=== PATIENT | female | born 1975 | race Caucasian/White ===

== ENCOUNTER 2017-04-20 09:03 | Day surgery (SDC) | payer BC ==
[~2017-04-20] VITALS: Ht 170.2 cm; Wt 150.0 kg
[~2017-04-20 09:03] MED LIST: ALBUTEROL17 GM IH; ALDOMET250 MG PO; ALIGN4 MG PO; ALLEGRA30 MG PO; ATIVAN1 MG PO; ATROVENT 00.5 MG/2.5 IH; BENTYL20 MG PO; BUSPAR15 MG PO; CLONIDINE HCL0.1 MG PO; COMBIVENT200 INHALA IH; DEPO-PROVER150 MG/ML IM; DILAUDID2 MG PO; EXFORGE 10/11 TABLET PO; EXFORGE 5/321 TABLET PO; FLEXERIL5 MG PO; FLONASE ALLERG9.9 ML BOTH NARES; FLONASE16 G1 BOTH NARES; FLONASE16 G1 NS; FLORANEX CHE1 TABLET PO; Flexeril PO; Flonase BOTH NARES; HUMALOG100 UNIT/2 SC; HYDROCHLOROTHIA50 MG PO; HYDROCODON-ACE1 EACH PO; IMITREX20 MG NS; IMITREX5 MG NS; LANTUS 3 M100 UNITS1 SC; MAXALT10 MG PO; MIRALAX17 GM PO; MYCOSTATIN 100,60 ML PO; NORVASC5 MG PO; NOVOLOG PE100 UNITS/ SC; NYSTATIN100000 UN1 PO; Norvasc PO; PERCOCET 5/31 TABLET PO; PREDNISONE20 MG PO; PRENATAL TABLE1 EAC3 PO; PRINIVIL10 MG PO; PROMETHAZINE HC25 M1 PO; PROTONIX40 MG PO; PULMICORT1 MG/2 ML IH; Phenergan PO; Protonix PO; Pulmicort 90 microgr IH; Robitussin AC,Tussi- PO; SYMBICORT60 INHALAT IH; Symbicort 160-4.5 mc IH; THEO-24200 MG PO; THEOPHYLLINE A200 M1 PO; Theo-Dur,Theocron PO; ULTIMATE FLORA PO; VICODIN,LORT1 TABLET PO; Vicodin,Norco 5/325 PO; XANAX0.25 MG PO; XANAX1 MG PO; XOPENEX1.25 MG/3 IH; XYZAL5 MG PO; Xanax PO; Xopenex IH; ZOFRAN8 MG PO; Zofran PO; [UNRECOGNIZED DRUG - OTHER] PO; predniSONE PO
[2017-04-20] MEDS ORDERED: IBUPROFEN400 MG PO (09:45)
[2017-04-20] MEDS ORDERED: BENADRYL25 MG PO (09:46)
[2017-04-20 09:51] VITALS: BP 134/85
[2017-04-20 13:55] VITALS: BP 119/73
[2017-04-20 14:55] VITALS: BP 110/61
[2017-04-20 15:24] VITALS: BP 103/58
== END 2017-04-20 15:30 | disposition home or self-care (01) ==
LOC: SDC 09:03
PROVIDERS: Obstetrics & Gynecology
PROC: 0UBC7ZX Excision of Cervix, Via Natural or Artificial Opening, Diagnostic (ICD-10-PCS; principal; 2017-04-20)
DX: N87.1 Moderate cervical dysplasia (principal); I10 Essential (primary) hypertension; J44.9 Chronic obstructive pulmonary disease, unspecified; E11.9 Type 2 diabetes mellitus without complications; M79.7 Fibromyalgia; Z87.891 Personal history of nicotine dependence; K21.9 Gastro-esophageal reflux disease without esophagitis; Z88.2 Allergy status to sulfonamides; E66.9 Obesity, unspecified; Z68.43 Body mass index [BMI] 50.0-59.9, adult
CPT/HCPCS: 82480 90; 82948; 88305; 88307; 88342 TC; 93005; J0330; J1170; J2250; J2405; J2765; J3010; Q0175